=== PATIENT | male | born 1970 ===

== ENCOUNTER 2021-07-10 07:41 | Outpatient (CLI) | payer OTHER, SELFPAY ==
[2021-07-10] VITALS (10 sets, daily range): BP systolic 161–217; BP diastolic 98–128; PULSE 57–78; RESP 14–18; TEMP 36.4–36.7; O2SAT 96–100; BMI 23.6
--- NOTE | 2021-07-10 | DI.RAD.S_ITS ---
PROCEDURE: FL MYELOGRAM SPINE LUMBOSACRAL INDICATIONS: Radiculopathy, lumbar region COMPARISON: [facility], CT, CT LUMBAR SPINE W CON, 07/10/2021, 9:41. TECHNIQUE: The indications, alternatives, benefits, risks and complications of the procedure were explained to the patient. Written informed consent was obtained and placed in the chart. The patient was placed in a prone position on the fluoroscopy table, and a level was chosen for percutaneous access under fluoroscopic guidance. The skin was prepped and draped in a sterile fashion. After local anaesthetic, a spinal needle was then used to enter the intrathecal space, with return of clear cerebrospinal fluid. 15 mL of Isovue M-200 were administered intrathecally under fluoroscopic visualization. The needle was then withdrawn, and a bandage applied to the puncture site. Fluoroscopic spot films were then acquired in various positions. FINDINGS: Standing frontal, lateral, and oblique views demonstrate no significant central canal stenoses. Access level: L2-L3 Medications: 1% lidocaine for local anaesthesia. Complications: None. Patient was transferred to CT for subsequent CT myelogram. IMPRESSION: Successful fluoroscopically guided administration of iodinated contrast into the lumbar spine central canal for CT myelogram. Dictated by: Juanis Barnhart MD, PhD on 07/10/2021 at 10:16 Approved by: Juanis Barnhart MD, PhD on 07/10/2021 at 10:18
[2021-07-10 08:03] LABS: Hematocrit 40.3 % (41-53); Platelet Count 191 X10^3/uL (150-400)
[2021-07-10 08:10] LABS: INR 1.1 (0.9-1.3); Prothrombin Time 11.7 SECONDS (10.1-12.7)
[2021-07-10] MEDS: fentaNYL 100 MCG/2 ML INJ IV (09:23)
--- NOTE | 2021-07-10 09:29 | DI.CT.S_ITS ---
PROCEDURE: CT LUMBAR SPINE W CON INDICATIONS: Radiculopathy, lumbar region TECHNIQUE: After the intrathecal administration of 15 mL intrathecal contrast, 3 mm thick sections acquired from T12 to the sacrum. Sagittal and coronal reformats were then constructed. For radiation dose reduction, the following was used: automated exposure control. COMPARISON: [facility], RG, CT L SPINE WITHOUT CONTRAST, 03/10/2021, 9:41. FINDINGS: Image quality: Excellent. Bones: Postsurgical changes compatible with L5-S1 osseous posterior and interbody fusion noted. Spinal alignment is normal. No spondylolysis or spondylolisthesis. No suspicious bony lesions. No acute fractures. Soft tissues: No retroperitoneal masses. Visualized aorta demonstrates normal caliber. Neurostimulator leads noted in the posterior paraspinous soft tissues with leads extending into the posterior epidural space via the L1-2 interspinous space. Visualized neural stimulator leads are intact. T12-L1: Disc height is normal. No central stenosis. No neural foraminal narrowing. No neural compression. L1-L2: Disc height is normal. No central stenosis. No neural foraminal narrowing. No neural compression. L2-L3: Disc height is normal. Mild, diffuse disc bulge. Mild ligamentum flavum hypertrophy. Mild narrowing of the central canal. Mild bilateral neural foraminal narrowing. No neural compression. L3-L4: Disc height is normal. Mild, diffuse disc bulge. Mild bilateral facet hypertrophy. Mild ligamentum flavum hypertrophy. Moderate narrowing of the central canal. Moderate bilateral neural foraminal narrowing. No neural compression. L4-L5: Disc height is normal. Mild to moderate diffuse disc bulge. [id number] bilateral facet hypertrophy. Mild ligamentum flavum hypertrophy. Mild to moderate narrowing of the central canal. Moderate to severe bilateral neural foraminal narrowing. No neural compression. L5-S1: Status post fusion. No central stenosis. Mild right and moderate left neural foraminal narrowing. No neural compression. Miscellaneous: Nerve roots appear unremarkable throughout. No nerve root clumping to suggest arachnoiditis. IMPRESSION: 1. Status post L5-S1 osseous fusion. 2. Multilevel degenerative disc disease. 3. Multilevel facet arthropathy. 4. No severe central canal narrowing. Moderate L3-L4 central canal narrowing. Mild to moderate L4-L5 central canal narrowing. Mild L2-L3 central canal narrowing. 5. Moderate to severe bilateral L4-L5 neural foraminal narrowing. Moderate bilateral L3-L4 neural foraminal narrowing. Mild right and moderate left L5-S1 neural foraminal narrowing. Mild bilateral L2-L3 neural foraminal narrowing. 6. No neural compression. Dictated by: Juanis Barnhart MD, PhD on 07/10/2021 at 11:36 Approved by: Juanis Barnhart MD, PhD on 07/10/2021 at 11:45
--- NOTE | 2021-07-10 12:05 | SUR.PHASEII ---
1220 hrs: Pt's blood pressure is high, states he took his home blood pressure medications at 0500 this AM. Pt is otherwise asymptomatic. Dr Barnhart contacted via telephone and alerted to Pt's vital signs. Dr Barnhart suggests RN contact Pt's PCP in order to learn if the Pt's blood pressure has been previously controlled by home medications. Pt indicated that his PCP is Dr Armas at [facility], . I called the number and left a message on the secure line, and am awaiting a call back.
--- NOTE | 2021-07-10 12:24 | SUR.PHASEII ---
1000 hrs: Pt states he has not arranged for a ride home, and was not made aware of the need for a ride home during his pre-procedure telephone call on Saturday. Pt is angry, states that his will have to leave work early and drive an hour to pick him up. Charge Nurse Megan aware, in the room to converse with Pt about situation.
--- NOTE | 2021-07-10 13:04 | SUR.PHASEII ---
Pt resting and awaiting on his to pick him up.
== END 2021-07-10 14:20 ==
LOC: OR 07:45
PROVIDERS: Referring Provider Nurse Practitioner Family; Visit Provider Nurse Practitioner Family
DX: M54.16 Radiculopathy, lumbar region (principal); Z01.812 Encounter for preprocedural laboratory examination
CPT/HCPCS: 36415; 72132; 72265; 85014; 85049; 85610; J3010